=== PATIENT | female | born 1990 | race Caucasian/White ===

== ENCOUNTER 2024-09-16 17:08 | Emergency (ER) | payer BC, SELFPAY ==
[2024-09-16 17:15] VITALS: BP 141/95
[2024-09-16 17:41] LABS: % Basophils 0.1 % (0-2); % Eosinophils 1.9 % (0-6); % Immature Granulocytes 0.4 % (0-0.5); % Neutrophils 56.6 % (42.2-75.2); Absolute Eosinophils 0.2 10^3/uL (0-0.7); Absolute Lymphocytes 3.8 10^3/uL (1.2-3.4); Absolute Monocytes 0.5 10^3/uL (0.1-0.6); Absolute Neutrophils 5.9 10^3/uL (1.4-6.5); Hematocrit 38.2 % (37.0-47.0); Hemoglobin 12.9 g/dL (12.0-16.0); Mean Corp Hgb Conc. 33.8 g/dL (33.0-37.0); Mean Corpuscular Hgb 31.3 pg (27.0-31.0); Mean Corpuscular Volume 92.7 fL (81.0-99.0); Mean Platelet Volume 8.5 fL (7.4-10.4); Nucleated Red Blood Cells % 0 %; Platelet Count 360 10^3/uL (130-400); Red Blood Cell Count 4.12 10^6/uL (4.20-5.40); Red Cell Dist. Width 13.2 % (11.5-14.5); White Blood Cell Count 10.5 10^3/uL (4.8-10.8)
[2024-09-16 18:01] LABS: HCG, Serum Qualitative Screen Negative
[2024-09-16 18:15] LABS: ALT (SGPT) 23 U/L (0-35); AST (SGOT) 24 U/L (14-36); Albumin 4.7 g/dl (3.5-5.0); Alkaline Phosphatase 27 U/L (38-126); Blood Urea Nitrogen 14 mg/dl (7-17); Calcium 9.5 mg/dl (8.4-10.2); Carbon Dioxide 26 mmol/L (22-30); Chloride 103 mmol/L (98-107); Glucose 90 mg/dl (70-99); Potassium 4.1 mmol/L (3.5-5.1); Sodium 143 mmol/L (135-145); Total Bilirubin 0.6 mg/dl (0.2-1.3); Total Protein 7.5 g/dl (6.3-8.2); eGFR > 60.00
[2024-09-16 18:16] LABS: Troponin I < 0.012 ng/ml
[2024-09-16 20:00] VITALS: BP 120/71
--- NOTE | 2024-09-16 20:51 | ED.GENMED ---
History of Present Illness
General
Chief Complaint: Medication Reaction
Source: patient
Time Seen by Provider: 09/16/24 20:39
History of Present Illness
History of Present Illness:
34-year-old female with past medical history of Flaquita's thyroiditis, anxiety presenting to the emergency department for evaluation after she took the first dose of sertraline this morning around 9 AM and around noon time started feeling
palpitations, short of breath, body paresthesias and generally unwell. She contacted primary care's office and was recommended to come to the ER for further evaluation. At time of my evaluation patient reports symptoms are mostly resolved.
Patient notes that she had been on Lexapro for about a month but due to nausea had this medication discontinued and had not taken anything for about 2 weeks up until today. Denies any rashes, vomiting or any other concerns presently.
Past History
Past History
ED Past Medical History: Hypothyroidism and Psychiatric
ED Past Surgical History: None
Social History
Tobacco: Non-smoker
Alcohol: Occasional
Drug: None
Personal: Single
Living: with family
Employment: Employed
Review of Systems
Review of Systems
All Other Systems: ROS reviewed and negative except as documented in HPI and ROS
Phy Exam
Physical Exam
Physical Exam:
GENERAL: Alert , in no apparent distress
EYE: conjunctiva clear
NECK: Supple
ENT: o/p clr, mmm.
CARDIAC: Regular rate and rhythm
LUNGS: Clear breath sounds bilaterally, no acute respiratory distress, no wheezes/rales/rhonchi
NEUROLOGICAL: Alert and oriented
SKIN: Warm and dry, skin intact.
MUSCULOSKELETAL: well perfused.
PSYCH: Normal and appropriate interaction.
Scores
Heart Failure Risk
Heart Failure Risk Score: Not Applicable
Heart Score for Chest Pain Patients
STEMI patient?: Not applicable
Withdrawal Assessment of Alcohol
Withdrawal Assessment Completed?: Not applicable
Course
Orders/Labs/Results
Orders:
Orders
09/16/24 17:10
Electrocardiogram (*1) Urgent
Reason for Study: Chest Pain
09/16/24 17:11
EKG- Treatment ONCE
09/16/24 17:20
Test Result ONCE
09/16/24 17:23
Complete Blood Count/With Diff Urgent
Comprehensive Metabolic Panel Urgent
HCG, Serum Qualitative Screen Urgent
Troponin I Urgent
Abnormal Lab Results
09/16/24
17:23
RBC 4.12 L 10^6/uL
(4.20-5.40)
MCH 31.3 H pg
(27.0-31.0)
Absolute Lymphs (auto) 3.8 H 10^3/uL
(1.2-3.4)
Alkaline Phosphatase 27 L U/L
(38-126)
09/16/24 17:23
09/16/24 17:23
Vital Signs
Initial and Last Documented VS:
Initial Vital Signs
Temp Pulse Resp BP Pulse Ox
97.5 F 65 18 141/95 99
09/16/24 17:15 09/16/24 17:15 09/16/24 17:15 09/16/24 17:15 09/16/24 17:15
Last Documented Vital Signs
Temp Pulse Resp BP Pulse Ox
98.0 F 52 18 120/71 100
09/16/24 20:00 09/16/24 20:00 09/16/24 17:15 09/16/24 20:00 09/16/24 20:00
MDM/Problems Addressed
Differential Diagnosis Includes:
Medication side effect, anxiety, thyroid sore, no concern for ACS
MDM/Problems Addressed:
34-year-old female presenting to the emergency department for evaluation after she took a dose of sertraline today around 9 AM for the first time and she started to experience body paresthesias, palpitations and generally unwell. At time of my exam
symptoms are mostly resolved. Labs and EKG were initiated from triage and are all unremarkable. Discussed with patient that symptoms could potentially be related to the medication she took and advised against taking this medication again.
Encouraged her to contact family doctor in the morning for further evaluation and possible medication changes. Patient is otherwise stable for discharge home.
*Pulse Oximetry
Patient hypoxic: no
*EKG
Comparison EKG: no comparison EKG present
Heart Rate: 55
Rate: bradycardiac
Rhythm: sinus
Sharon: normal axis
Ischemia: no ischemia
*Critical Care Note
Total Time (30-74mins, 75-104mins- exclusive of procedures): Not Applicable
ED Attending Note
-
Portions of this chart may have been created with voice recognition software.� Occasional wrong word or��sound alike� substitutions may have occurred due to the inherent limitations of voice recognition software.
Discharge Plan
Departure
Patient Disposition: Home (Routine Discharge)
Date of Disposition: 09/16/24
Time of Disposition: 20:51
Patient with high blood pressure during this ER visit?: No
Discharge Problem:
Adverse effect of selective serotonin reuptake inhibitor (SSRI)
Instructions: Adverse Drug Reactions, Adult ED
Interventions
Interventions:
*Nursing Disposition Last Done: 09/16/24 21:10
ED-Skin Assessment Last Done: 09/16/24 21:10
ED- Pulmonary Assessment Last Done: 09/16/24 21:10
Discharge Date and Time
Discharge Date/Time: 09/16/24 21:10
Print Language: POLISH
== END 2024-09-16 21:10 | disposition home or self-care (01) ==
LOC: EMR 17:08
PROVIDERS: Student in an Organized Health Care Education/Training Program; EMERGENCY PHYSICIAN Student in an Organized Health Care Education/Training Program; FAMILY PHYSICIAN Family Medicine
DX: R00.2 Palpitations (principal); T43.225A Adverse effect of selective serotonin reuptake inhibitors, initial encounter; E06.3 Autoimmune thyroiditis
CPT/HCPCS: 99284; 80053; 84484; 84703; 85025; 93005